=== PATIENT | male | born 1990 | race Caucasian/White ===

== ENCOUNTER 2020-05-19 21:25 | Emergency (ER) | payer SELFPAY ==
[2020-05-19 21:33] VITALS: BP 137/80; PULSE 120; RESP 18; TEMP 37.2; O2SAT 96; BMI 25.0
--- NOTE | 2020-05-19 21:43 | XR_ITS ---
WS: [id number] PORTABLE CHEST HISTORY: cough COMPARISON: None available. Lungs are clear and well expanded. No pleural effusion or pneumothorax. Cardiac size: Normal. Mediastinum/Aorta: Normal mediastinum. No osseous abnormality seen. XR/XR chest 1V portable [id number] IMPRESSION: Unremarkable portable chest.
--- NOTE | 2020-05-19 21:44 | ED_ITS ---
HPI - Dental/Oral General: Chief complaint: Dental/Oral Stated complaint: swollen face, sob Time Seen by Provider: 05/19/20 21:39 Source: patient Mode of arrival: ambulatory Limitations: no limitations History of Present Illness: HPI Narrative: 30-year-old male he states he has had left lower dental pain over the last 3 days with swelling down into his jaw. Patient states he had some difficulty swallowing and felt like he is having swelling in his neck. Patient's had a cough. Denies any fever. He denies any vomiting or diarrhea. Onset (ago): day(s) Duration: constant Severity: moderate Relieving factors: nothing Exacerbating factors: nothing Associated symptoms: Reports odynophagia; Denies fever(s) Review of Systems Const: Denies: fever(s), chills, body aches or change in appetite Eyes: Denies: blurry vision or eye discomfort ENMT: Reports: odynophagia and dental pain Card: Denies: chest pain Resp: Reports: non-productive cough GI: Denies: abdominal pain, nausea, vomiting or diarrhea : Denies: dysuria Musc: Denies: neck pain or back pain Skin/Breast: Denies: rash Neuro: Denies: headache(s) Psych: Denies: depression Jatin/Lymph: Denies: easy bruising All/Imm: Denies: urticaria Physical Exam Const: COMMON NORMALS: no acute distress, patient oriented x3 and healthy appearing HENMT: COMMON NORMALS: normocephalic and atraumatic HEAD & SCALP: normocephalic and atraumatic OTHER: Tenderness over left lower molar with extensive swelling to left lower jaw Eye: COMMON NORMALS: Equal, round and reactive pupils present and EOMs intact bilaterally PUPIL: Yes Equal, round and reactive pupils present Neck/C-Spine: COMMON NORMALS: full ROM and supple Chest: COMMONS NORMALS: normal inspection of the chest and normal palpation of entire chest wall Resp: COMMON NORMALS: normal respiratory effort, No retractions, No use of accessory muscles and clear to auscultation bilaterally AUSCULTATION: clear to auscultation bilaterally Cardio: COMMON NORMALS: regular rate, regular rhythm and No murmurs present (Cardio) RATE: regular rate RHYTHM: regular rhythm GI: COMMON NORMALS: Normal to inspection, nondistended, normoactive bowel sounds present, Soft to palpation, non-tender and no masses PALPATION: Yes Soft to palpation Extremity: COMMON NORMALS: normal to inspection and full ROM Neuro: COMMON NORMALS: patient oriented x3, moves all extremities and no focal motor deficits Psych: COMMON NORMALS: mental status grossly normal, Normal thought process present and cooperative THOUGHT PROCESS: Normal thought process present Skin: COMMON NORMALS: no rashes or lesions noted and no wounds GENERAL SKIN EXAM: no rashes or lesions noted Course Vital Signs: Vital signs: Vital Signs Temperature 98.9 F 05/19/20 21:33 Pulse Rate 81 05/19/20 23:26 Respiratory Rate 16 05/19/20 23:26 Blood Pressure 116/83 05/19/20 23:26 Pulse Oximetry 98 05/19/20 23:26 MDM - Dental/Oral MDM Narrative: Medical decision making narrative: Ramandeep presents here with dental carry with cellulitis. Patient has no abscess formation on CT Will place him on antibiotics and he is to follow-up with a dentist. Patient given IV clindamycin here. Patient is return if any problems swallowing or having any trismus. He has no trismus here and was able to tolerate his secretions without any problems. Lab Data: Labs: Lab Results 05/19/20 05/19/20 Range/Units 22:10 22:10 WBC 17.8 H (4.0-10.0) 10^3/ uL RBC 4.75 (4.1-5.3) 10^6/u L Hgb 15.1 (11.7-16.6) g/dL Hct 43.0 (42.0-52.0) % MCV 90.5 (80-94) fL MCH 31.8 (28.0-34.0) pg MCHC 35.1 (30.0-36.0) g/dL RDW 11.7 L (12.1-15.1) % Plt Count 334 (130-400) 10^3/c mm MPV 9.2 (7.4-10.4) fL Neut % (Auto) 74.0 % Lymph % (Auto) 16.0 % [place] % (Auto) 8.5 % Eos % (Auto) 0.9 % Baso % (Auto) 0.3 % Neut # (Auto) 13.16 H (1.8-7.7) 10^3/u L Lymph # (Auto) 2.9 (0.8-4.8) 10^3/u L [place] # (Auto) 1.5 H (0.2-0.9) 10^3/u L Eos # (Auto) 0.2 (0.0-0.8) 10^3/u L Baso # (Auto) 0.1 (0.0-0.1) 10^3/u L Nucleated RBC % (a uto) 0 % Nucleated RBCs # 0.0 /100WBC Sodium 137 (136-145) mmol/L Potassium 3.7 (3.5-5.1) mmol/L Chloride 99 (98-107) mmol/L Carbon Dioxide 24 (22-29) mmol/L Anion Gap 17.7 (5-19) BUN 8 (6-20) mg/dL Creatinine 1.0 (0.7-1.2) mg/dL GFR Calculation 88.3 L (90-130) mL/min Glucose 135 H (65-115) mg/dL Calculated Osmolal ity 282 L (285-295) mOsm/k g Calcium 9.2 (8.5-10.5) mg/dL Total Bilirubin 0.4 (0.15-1.2) mg/dL AST 23 (0-40) U/L ALT 21 (0-41) U/L Alkaline Phosphata se 65 (40-130) IU/L Total Protein 7.6 (6.6-8.7) g/dL Albumin 4.6 (3.5-5.2) g/dL Globulin 3.0 (1.3-4.6) g/dL Imaging Data^: Other CT: Radiologist's impression: [address] [address] [address] Scan Report Signed Patient: Te Ulloa Unit #: [id number] : 1990 Age/Sex: 30 / M ADM Date: 05/19/20 Loc: ER Room/Bed: Attending Dr: Ordering Provider/Ordering MD: Asia Howe MD Date of Service: 05/19/20 Procedure(s): CT neck w con* [id number] Accession Number(s): [id number] Report Number: [id number] PROCEDURE INFORMATION: Exam: CT Neck With Contrast Exam date and time: 05/19/2020 10:03 PM Age: 30 years old Clinical indication: Painful swallowing; Patient HX: Left jaw pain, unable to swallow; Additional info: Dental pain TECHNIQUE: Imaging protocol: Computed tomography images of the neck with intravenous contrast. Radiation optimization: All CT scans at this facility use at least one of these dose optimization techniques: automated exposure control; mA and/or kV adjustment per patient size (includes targeted exams where dose is matched to clinical indication); or iterative reconstruction. Contrast material: OMNI 300; Contrast volume: 95 ml; Contrast route: INTRAVENOUS (IV); COMPARISON: No relevant prior studies available. RADIATION DOSE METRICS: Total DLP (mGy-cm): 739.3 FINDINGS: Nasopharynx: Unremarkable. Oropharynx: Unremarkable. No significant tonsillar enlargement. Hypopharynx: Unremarkable. Larynx: Unremarkable. Normal epiglottis. Retropharyngeal space: Unremarkable. Submandibular/Parotid glands: Normal. Glands are normal in size. Thyroid: Normal. No enlarged or calcified nodules. Lymph nodes: Several left submandibular enlarged lymph nodes measuring 10 mm short axis, nonspecific Trachea: Visualized trachea is unremarkable. Lungs: Unremarkable as visualized. Bones/joints: Unremarkable. No acute fracture. Soft tissues: Subcutaneous edema over the left mandible with some nonlocalized fluid suggestive of an infectious process/cellulitis without definable abscess. CT/CT neck w con* [id number] IMPRESSION: Subcutaneous edema over the left mandible with some nonlocalized fluid suggestive of an infectious process/cellulitis without definable abscess. Several left submandibular enlarged lymph nodes measuring 10 mm short axis, nonspecific Discharge Plan Discharge Patient Disposition: Home, Self-Care Clinical Impression: Dental infection Condition: Stable Prescriptions: New Jean 5-325 mg tablet 1 tab PO Q6H PRN (Reason: pain) Qty: 14 RF: 0 clindamycin HCl 300 mg capsule 300 mg PO Q8H 10 Days Qty: 30 RF: 0 Discharge Orders: Discharge Order (Routine); Ordered 05/19/20 Ordered By: Asia Howe Discharge Diet: Advance as tolerated Discharge Activity: Resume usual activity Patient Instructions: Dental Abscess (ED), Dental Caries (ED) Activity Restrictions/Additional Instructions: Follow-up with a dentist in 2 to 4 days. Return to ER if any fevers or difficulty swallowing. Discharge Date/Time: 05/19/20 23:30 Coding Level of Care Code ED Seal Delivery Vehicle Officer for Chg Fwd Exam Comprehensive
[2020-05-19 22:02] VITALS: BP 124/72; PULSE 110; RESP 16; O2SAT 97
[2020-05-19 22:08] VITALS: RESP 16; O2SAT 97
[2020-05-19] MEDS: HYDROmorphone 1 mg/mL INJ 1 mL IVP (22:08)
[2020-05-19] MEDS: ondansetron 2 mg/ML SDV 2 mL 4 MG IVP (22:08)
[2020-05-19] MEDS: sodium chloride 0.9% 1,000 ML 999 ML IV (22:09)
[2020-05-19] MEDS: clindamycin 900 MG/50 ML PREMIX 100 MG IV (22:09)
[2020-05-19 22:15] LABS: Basophils # 0.1 10^3/uL (0.0-0.1); Basophils % 0.3 %; Eosinophils # 0.2 10^3/uL (0.0-0.8); Eosinophils % 0.9 %; Hemoglobin 15.1 g/dL (11.7-16.6); Lymphocytes # 2.9 10^3/uL (0.8-4.8); Mean Corpuscular HGB Conc 35.1 g/dL (30.0-36.0); Mean Corpuscular Hemoglobin 31.8 pg (28.0-34.0); Mean Corpuscular Volume 90.5 fL (80-94); Mean Platelet Volume 9.2 fL (7.4-10.4); Monocytes # 1.5 10^3/uL (0.2-0.9); Monocytes % 8.5 %; Neutrophils # 13.16 10^3/uL (1.8-7.7); Nucleated Red Blood Cells % 0 %; Platelet Count 334 10^3/cmm (130-400); Red Blood Count 4.75 10^6/uL (4.1-5.3); Red Cell Distribution Width 11.7 % (12.1-15.1); White Blood Count 17.8 10^3/uL (4.0-10.0)
[2020-05-19 22:30] LABS: Alanine Aminotransferase 21 U/L (0-41); Albumin Level 4.6 g/dL (3.5-5.2); Alkaline Phosphatase 65 IU/L (40-130); Anion Gap 17.7 (5-19); Aspartate Amino Transferase 23 U/L (0-40); Blood Urea Nitrogen 8 mg/dL (6-20); Calcium 9.2 mg/dL (8.5-10.5); Carbon Dioxide 24 mmol/L (22-29); Chloride 99 mmol/L (98-107); Glomerular Filtration Rate 88.3 mL/min (90-130); Glucose 135 mg/dL (65-115); Osmolality Calculated 282 mOsm/kg (285-295); Potassium 3.7 mmol/L (3.5-5.1); Sodium 137 mmol/L (136-145); Total Bilirubin 0.4 mg/dL (0.15-1.2); Total Protein 7.6 g/dL (6.6-8.7)
[2020-05-19 22:40] VITALS: BP 113/78; PULSE 90; RESP 16; O2SAT 97
[2020-05-19] MEDS: iohexol 300 mg/mL 100 mL Btl IV (22:51)
[2020-05-19] MEDS: dexamethasone 10 mg/mL INJ IVP (23:20)
[2020-05-19 23:26] VITALS: BP 116/83; PULSE 81; RESP 16; O2SAT 98
== END 2020-05-19 23:30 | disposition home or self-care (01) ==
PROVIDERS: Emergency Provider Emergency Medicine
DX: K04.7 Periapical abscess without sinus (principal)
CPT/HCPCS: 12345; 70491; 71045; 80053; 85025; 96365; 96375; 99282; 99284; J1100; J1170; J2405; J3490; J7030; Q9967